=== PATIENT | female | born 1960 | race African-American/Black ===

== ENCOUNTER 2018-03-07 21:30 | Observation (INO) | payer MEDICARE, MEDICAID ==
[2018-03-07] MEDS ORDERED: Morphine 4 MG/ML VIAL ONE (22:10)
[2018-03-07 22:28] LABS: #Eosinphils 0.2 thou/uL (0.0-0.7); #Lymphocytes 1.7 thou/uL (1.20-3.40); #Monocytes 0.5 thou/uL (0.11-0.59); %Basophils 0.6 % (0.0-1.0); %Eosinophils 3.6 % (0.0-10.0); %Lymphocytes 26.2 % (21.0-51.0); %Monocytes 7.8 % (0.0-10.0); %Neutrophils 61.8 % (42.0-75.0); Hemoglobin 11.8 g/dL (12.0-16.0); Mean Corpuscular HGB CONC 32.2 g/dL (32.0-36.0); Mean Corpuscular Hemoglobin 29.3 pg (27.0-31.0); Mean Corpuscular Volume 90.8 fL (78.0-98.0); Mean Platelet Volume 7.1 fL (7.4-10.4); Platelet Count 300 thou/uL (130-400); RBC Distribution Width 12.8 % (11.5-14.5); Red Blood Cell (RBC) Count 4.02 mill/uL (4.20-5.40); White Blood Cell (WBC) Count 6.5 thou/uL (4.8-10.8)
[2018-03-07 22:41] LABS: ALT (SGPT) 16 U/L (8-55); AST (SGOT) 26 U/L (5-34); Albumin 3.8 g/dL (3.5-5.0); Alkaline Phosphatase 116 U/L (40-150); Anion Gap 13 mmol/L (10-20); BUN (Urea Nitrogen) 7 mg/dL (9.8-20.1); Bilirubin, Total 0.7 mg/dL (0.2-1.2); Calc. Creatinine Clearance 0 mL/min (70-130); Calcium 9.3 mg/dL (7.8-10.44); Carbon Dioxide 24 mmol/L (22-29); Chloride 106 mmol/L (98-107); Estimated GFR-MDRD Greater than 90; Globulin 3.8 g/dL (2.4-3.5); Glucose 87 mg/dL (70-105); Lipase 20 U/L (8-78); Potassium 3.4 mmol/L (3.5-5.1); Protein, Total 7.6 g/dL (6.0-8.3); Sodium 140 mmol/L (136-145)
[2018-03-07 22:44] LABS: Acetaminophen Less than 6.0 mcg/mL (10.0-30.0); Alcohol Less than 10 mg/dL (Less than 10); CK (CPK) 728 U/L (29-168); Salicylate Less than 8.0 mg/dL (15.0-30.0)
--- NOTE | 2018-03-07 22:48 | RAD ---
PORTABLE UPRIGHT FRONTAL CHEST RADIOGRAPH: 03/07/2018 HISTORY: Seizure. Altered mental status. COMPARISON: 11/20/2012 FINDINGS: A left-sided Port-A-Cath is present with the distal tip overlying the cavoatrial junction. The lungs appear clear. The heart and mediastinal contour is unremarkable. IMPRESSION: No acute findings. POS: [facility]
[2018-03-07 22:53] LABS: CKMB 1.9 ng/mL (0-6.6); Troponin I Less than 0.010 ng/mL (< 0.028)
[2018-03-07] MEDS ORDERED: Ondansetron PF 4 MG/2 ML Vial IVP PRN (23:45)
[2018-03-07] MEDS ORDERED: Ondansetron ODT 4 MG TAB SL PRN (23:45)
[2018-03-08 00:28] VITALS: BMI 35.4
[2018-03-08] MEDS: diphenhydrAMINE 50 MG/ML VIAL IVP PRN ×2 (00:48→08:07)
[2018-03-08] MEDS ORDERED: Nitroglycerin 0.4 MG TAB (25 Tab Bottle) SL PRN (02:04)
[2018-03-08] MEDS ORDERED: Promethazine 25 MG TAB PO PRN (02:04)
[2018-03-08] MEDS ORDERED: Furosemide 40 MG TAB PO PRN (02:04)
[2018-03-08] MEDS ORDERED: Acetaminophen 325 MG TAB PO PRN (02:05)
[2018-03-08] MEDS ORDERED: Morphine 4 MG/ML VIAL ONE (03:15)
[2018-03-08] MEDS ORDERED: Morphine 2 MG/ML SYRINGE SLOW IVP SCH (03:15)
[2018-03-08 04:33] LABS: #Eosinphils 0.2 thou/uL (0.0-0.7); #Lymphocytes 1.7 thou/uL (1.20-3.40); #Monocytes 0.4 thou/uL (0.11-0.59); #Neutrophils 3.7 thou/uL (1.40-6.50); %Basophils 0.8 % (0.0-1.0); %Lymphocytes 28.2 % (21.0-51.0); %Monocytes 7.2 % (0.0-10.0); %Neutrophils 59.9 % (42.0-75.0); Mean Corpuscular HGB CONC 32.5 g/dL (32.0-36.0); Mean Corpuscular Hemoglobin 29.2 pg (27.0-31.0); Mean Corpuscular Volume 89.9 fL (78.0-98.0); Mean Platelet Volume 7.1 fL (7.4-10.4); Platelet Count 288 thou/uL (130-400); Red Blood Cell (RBC) Count 4.12 mill/uL (4.20-5.40); White Blood Cell (WBC) Count 6.2 thou/uL (4.8-10.8)
[2018-03-08 04:53] LABS: Anion Gap 10 mmol/L (10-20); BUN (Urea Nitrogen) 7 mg/dL (9.8-20.1); Calc. Creatinine Clearance 123 mL/min (70-130); Calcium 9.6 mg/dL (7.8-10.44); Carbon Dioxide 29 mmol/L (22-29); Chloride 106 mmol/L (98-107); Estimated GFR-MDRD Greater than 90; Glucose 105 mg/dL (70-105); Potassium 3.2 mmol/L (3.5-5.1); Sodium 142 mmol/L (136-145)
[2018-03-08] MEDS ORDERED: Sodium Chloride 0.9% 1,000 ML IV SCH (06:30)
[2018-03-08] MEDS ORDERED: Potassium Chloride 20 MEQ TAB PO SCH (07:00)
--- NOTE | 2018-03-08 07:00 | HP ---
PRIMARY CARE PHYSICIAN: Out of town physician. TIME OF EVALUATION: 2:00 a.m. CODE STATUS: Full code. CHIEF COMPLAINT: Seizures. HISTORY OF PRESENT ILLNESS: This is a 57-year-old female patient with past medical history of TIAs and some clot disorder. No clear diagnosis given by patient, with recurrent TIAs and seizure. The patient admitted to the hospital after having an episode of seizure when she was at [facility]. The patient has a _ ___ aura that was reported as a very strong smell. After that, she developed a seizure. She was brought into the hospital. The patient has had multiple seizures with no recovery of mental status in between episodes. The patient received Keppra and episodes were better controlled without any other episode here in the hospital since admission. The symptoms were severe. The patient developed seizure because she was not taking medication in the past week. She reported that during the weekend she was not really take them. REVIEW OF SYSTEMS: CONSTITUTIONAL: No fever or chills or weakness. RESPIRATORY: No cough, sputum production or shortness of breath. CARDIOVASCULAR: No chest pain, palpitation. GASTROINTESTINAL: No nausea, vomiting, diarrhea or abdominal pain. FOREST FIRE LOOKOUT: No dizziness, headache or feeling lightheaded. The patient had episode of multiple seizures, not recovering level of consciousness in between episodes. GENITOURINARY: No burning with urination. EXTREMITIES: No leg swelling. All other systems were reviewed and are negative except for as mentioned above. PAST MEDICAL HISTORY: Positive for history of multiple DVTs, PEs, strokes x2, epilepsy PAST SURGICAL HISTORY: The patient has IVC filter, cholecystectomy, hysterectomy. FAMILY HISTORY:Reviewed and non contributory to current presentation. PSYCHIATRIC HISTORY: Depression. SOCIAL HISTORY: No drug use, no alcohol use. No smoking history. ALLERGIES: ATIVAN, BUTALBITAL, CODEINE, CYCLOBENZAPRINE, DOXYCYCLINE, HYDROMORPHONE, KETOROLAC, LYRICA, MEPERIDINE, METHADONE, MORPHINE, ONDANSETRON, PROPOXYPHENE, SULFAMETHOXAZOLE, TETRACYCLINE, TRAMADOL, VICODIN and ZOLDIPEM. REPORTED MEDICATIONS: Eliquis, aspirin, vitamin D3, paroxetine, Lasix, Keppra, trazodone, pyridoxine. PHYSICAL EXAMINATION: VITAL SIGNS: Blood pressure 141/92, heart rate 89, respiratory rate 19, temperature 98.7, pain 5/10, O2 saturation 95 on room air. GENERAL APPEARANCE: The patient is alert, oriented, no acute distress. HEENT: Eyes; normal conjunctivae. Moist oral mucosa. Anicteric. NECK: No JVD. RESPIRATORY: Bilateral air entry, no rales, no wheezing. Symmetric expansion. CARDIOVASCULAR: Normal rate, regular rhythm. No murmurs, no gallop. No edema. ABDOMEN: Soft, normal bowel sounds. MUSCULOSKELETAL: Baseline range of motion and strength. No tenderness. SKIN: Warm and intact. No pallor, no rash. No redness. Peripheral pulses are present. Capillary refill seems to be intact. NEUROLOGIC: No evidence of any new focal weakness. Baseline speech. Cranial nerves seem to be intact. The patient does seems to have slow mentation, but this could be related to the loading dose of Keppra the patient received. PSYCHIATRIC: The patient is in a good mood. No anxiety. Optimal judgment. Chest x-ray report was reviewed and showed no significant cardiopulmonary pathology reported by radiologist. LABORATORY DATA: Labs were reviewed. The patient has a white count 6.2, hemoglobin 12, platelet count 288. Sodium 142, potassium 3.2, chloride 106, carbon dioxide 29, anion gap 10, BUN 7, creatinine 0.78, GFR was 90, glucose 105 , calcium 9.6. CK 728. Troponin was negative. LFTs were negative. Toxicology was negative. TSH was normal. ASSESSMENT AND PLAN: The patient was placed in the hospital with the following medical problems. 1. Status epilepticus. The patient presented with multiple seizures. They were recurrent with no recovery of level of consciousness in between seizures. The patient received Keppra loading dose, patient's seizures were because the patient was not taking medications at home. We will restart home medications. We will monitor the patient. We will adjust treatment as needed. She has no seizures since admission. 2. History of multiple deep venous thromboses in the past. She is on chronic anticoagulation that will be continued as inpatient. 3. Mild elevated CK, likely secondary to seizure activity, the patient will receive some hydration. 4. Hypokalemia that is mild 3.2 potassium, electrolytes will be replaced. 5. Deep venous thrombosis prophylaxis. 6. The patient presented with severe pain, given 1 dose of morphine overnight. We will monitor. We will treat accordingly. high risk due to status epilepticus , changein neurological status MTDD
[2018-03-08] MEDS ORDERED: levETIRAcetam 500 MG TAB PO SCH (08:00)
[2018-03-08] MEDS: levETIRAcetam 500 MG TAB PO SCH ×2 (08:03→21:48)
[2018-03-08] MEDS: pyridOXINE 50 MG (B6) TAB PO SCH ×2 (08:06→21:48)
[2018-03-08] MEDS: Aspirin 81 mg Enteric Coated Tablet PO SCH (08:06)
[2018-03-08] MEDS: Apixaban 5 MG TAB PO SCH ×2 (08:06→21:48)
[2018-03-08] MEDS: Morphine ER 30 MG TAB PO PRN ×2 (08:08→20:00)
--- NOTE | 2018-03-08 09:33 | PDOC.PN ---
- Subjective Encounter Start Date: 03/08/18 Encounter Start Time: 09:28 Patient sitting up in bed, she reports feeling better. No seizure like activity since admission. She denies chest pain, shortness of breath or abdominal pain. She has some blurred vision on the right from previous TIA. She reports at baseline - Objective Resuscitation Status: Resuscitation Status FULL:Full Resuscitation MAR Reviewed: Yes Vital Signs & Weight: Vital Signs (12 hours) Temp Pulse Resp BP Pulse Ox 03/08/18 07:38 97.2 F L 97 20 135/86 98 03/08/18 04:35 98.6 F 83 20 145/83 H 97 Weight Weight 212 lb 9.6 oz I&O: 03/07/18 03/08/18 03/09/18 06:59 06:59 06:59 Intake Total 510 300 Balance 510 300 Result Diagrams: 03/08/18 04:22 03/08/18 04:22 Radiology Reviewed by me: Yes EKG Reviewed by me: Yes Phys Exam - Physical Examination Constitutional: NAD HEENT: PERRLA, moist MMs, oral pharynx no lesions Neck: no nodes, no JVD, supple Respiratory: no wheezing, no rales, no rhonchi, clear to auscultation bilateral Cardiovascular: RRR, no significant murmur, no rub Gastrointestinal: soft, non-tender, no distention, positive bowel sounds Musculoskeletal: no edema, pulses present Neurological: non-focal, normal sensation, moves all 4 limbs Lymphatic: no nodes Psychiatric: normal affect, A&O x 3 Skin: no rash, normal turgor, cap refill <2 seconds Dx/Plan (1) Seizure Code(s): R56.9 - UNSPECIFIED CONVULSIONS Status: Acute (2) Epilepsy Code(s): G40.909 - EPILEPSY, UNSP, NOT INTRACTABLE, WITHOUT STATUS EPILEPTICUS Status: Acute (3) History of DVT (deep vein thrombosis) Code(s): Z86.718 - PERSONAL HISTORY OF OTHER VENOUS THROMBOSIS AND EMBOLISM Status: Acute (4) Major depressive disorder Code(s): F32.9 - MAJOR DEPRESSIVE DISORDER, SINGLE EPISODE, UNSPECIFIED Status : Acute - Plan cont current plan of care * Continue with home medications including eliquis for DVT and Keppra for seizures. * Neurology services consulted * Monitor patient progress, further adjustments to medications as needed
[2018-03-08] MEDS ORDERED: diphenhydrAMINE 25 MG CAP PO PRN (12:07)
[2018-03-08] MEDS ORDERED: diphenhydrAMINE 50 MG CAP PO PRN (14:51)
[2018-03-08] MEDS ORDERED: diphenhydrAMINE 50 MG/ML VIAL IVP SCH (17:00)
--- NOTE | 2018-03-08 17:52 | CON ---
DATE OF CONSULTATION: 03/08/2018 CONSULTING PHYSICIAN: Hospitalist Service. IMPRESSION: Breakthrough seizures secondary to noncompliance. PLAN: 1. Continue Keppra 500 mg twice a day. 2. Benadryl 25 mg IV for allergic reaction. HISTORY OF PRESENT ILLNESS: Ms. Hayes is a 57-year-old black female from [place]. She has a past history of blood clotting disorder and epilepsy. She ran out of medicine over the holidays due to not getting over to the pharmacy in time. She had several breakthrough seizures and was admitted. She had a loading dose of Keppra and was restarted on her maintenance dose. The EKG tabs have caused an allergic reaction and she is quite uncomfortable with the itching. She had a repeat CT scan of the brain done, which was unremarkable. There is a MRI of the brain dated back to 2012 that was also negative. Her routine lab work was all normal. PAST MEDICAL HISTORY: Deep venous thrombosis requiring chronic anticoagulation, fibromyalgia, and rheumatoid arthritis. ALLERGIES: TAPE. MEDICATIONS: Medication list was reviewed. SOCIAL HISTORY: No tobacco or illicit drug use. FAMILY HISTORY: Noncontributory. REVIEW OF SYSTEMS: No focal neurologic complaints. PHYSICAL EXAMINATION: GENERAL: She is slightly overweight middle-aged woman, appears to be quite uncomfortable. HEENT: Pupils are equal and reactive. Conjunctivae clear. Oropharynx clear. NECK: Supple. EXTREMITIES: No cyanosis, clubbing, or edema. NEUROLOGIC: She is alert and appropriate. Speech is fluent and clear. Exam is nonfocal. SUMMARY: Ms. Hayes seems to be back to her baseline. She has not had any further seizures since admission. I think she can be discharged to her aunt's home here in town and we will continue her medication for management of her seizure. Job ID: [id number]
[2018-03-08] MEDS ORDERED: traZODone HCl 150 MG TAB PO SCH (21:00)
[2018-03-08] MEDS ORDERED: DULoxetine 60 MG CAP PO SCH (21:00)
[2018-03-08] MEDS ORDERED: PARoxetine 20 MG TAB PO SCH (21:00)
[2018-03-09] MEDS: Aspirin 81 mg Enteric Coated Tablet PO SCH (08:58)
[2018-03-09] MEDS: Apixaban 5 MG TAB PO SCH (08:58)
[2018-03-09] MEDS: levETIRAcetam 500 MG TAB PO SCH (08:58)
[2018-03-09] MEDS: pyridOXINE 50 MG (B6) TAB PO SCH (08:58)
[2018-03-09] MEDS: Morphine ER 30 MG TAB PO PRN (10:53)
[2018-03-09 12:27] VITALS: BP 102/64; TEMP 97.5
--- NOTE | 2018-03-09 12:58 | PDOC.EVN ---
Event Note - Event Note Event Note: I have interviewed, examined and discussed pt with Andrew YAÑEZ regarding breakthrough seizure restarted back on Keppra. No new seizure activity noted. Please see dictated d/c summary for full details. Ok to d/c home today.
--- NOTE | 2018-03-12 20:20 | EKG ---
Test Reason : Blood Pressure : / mmHG Vent. Rate : 084 BPM Atrial Rate : 084 BPM P-R Int : 156 ms QRS Dur : 086 ms QT Int : 360 ms P-R-T Axes : 023 021 039 degrees QTc Int : 425 ms Normal sinus rhythm Normal ECG Confirmed by DAISY CARRILLO, YANE ([id number]), book editor CLEMENCIA GRAY ([id number]) on 03/12/2018 8:20:04 PM Referred By: Confirmed By:YANE VILLA MD
== END 2018-03-09 14:45 | disposition home or self-care (01) ==
LOC: ERS 21:30 → 2SW 22:04
PROVIDERS: ADMIT Hospitalist; ATTEND Hospitalist
DX: G40.901 Epilepsy, unspecified, not intractable, with status epilepticus (principal); D68.9 Coagulation defect, unspecified; F32.9 Major depressive disorder, single episode, unspecified; E87.6 Hypokalemia; M79.7 Fibromyalgia; M06.9 Rheumatoid arthritis, unspecified; E66.3 Overweight; Z68.36 Body mass index [BMI] 36.0-36.9, adult; Z86.73 Personal history of transient ischemic attack (TIA), and cerebral infarction without residual deficits; Z86.718 Personal history of other venous thrombosis and embolism; Z79.01 Long term (current) use of anticoagulants; Z79.82 Long term (current) use of aspirin; Z79.899 Other long term (current) drug therapy; Z88.1 Allergy status to other antibiotic agents; Z88.2 Allergy status to sulfonamides; Z88.5 Allergy status to narcotic agent; Z88.8 Allergy status to other drugs, medicaments and biological substances; Z91.018 Allergy to other foods; Z95.828 Presence of other vascular implants and grafts
CPT/HCPCS: 71045; 80048; 80307; 82140; 82550; 82553; 83690; 83880; 84484; 85025; 93005; 96374; 96375; 96376; 99285; G0378 ×2; 84443; 96361; J1200; J1642; J2270

== ENCOUNTER 2018-03-16 14:18 | Observation (INO) | payer MEDICARE, MEDICAID ==
[~2018-03-16 14:18] MED LIST: ISOVUE-370 76%-LOCM 1 ML ONE
--- NOTE | 2018-03-16 15:47 | CT ---
HEAD CT WITHOUT CONTRAST: 03/16/18 HISTORY: Patient not acting normal this morning. Witnessed grand mal seizure. COMPARISON: 03/07/18 FINDINGS: No parenchymal hemorrhage. No extra-axial hematoma. No midline shift. Basilar cisterns are patent. Br ain volume, age appropriate. Cortical pantoja-white matter differentiation is preserved. The ventricles and sulci are patent and symmetric. Adequate aeration of the sinuses and mastoid air cells. Calvarium is intact. IMPRESSION: No acute intracranial process. Results of the study discussed with Lazara Foster, 03/16/18 at 2:59 p.m. Code CR POS: [facility]
[2018-03-16 16:03] LABS: #Eosinphils 0.2 thou/uL (0.0-0.7); #Lymphocytes 1.2 thou/uL (1.20-3.40); #Monocytes 0.6 thou/uL (0.11-0.59); #Neutrophils 3.1 thou/uL (1.40-6.50); %Basophils 0.6 % (0.0-1.0); %Eosinophils 4.2 % (0.0-10.0); %Lymphocytes 23.3 % (21.0-51.0); %Monocytes 11.7 % (0.0-10.0); %Neutrophils 60.2 % (42.0-75.0); Hemoglobin 11.9 g/dL (12.0-16.0); Mean Corpuscular HGB CONC 32.7 g/dL (32.0-36.0); Mean Corpuscular Hemoglobin 29.4 pg (27.0-31.0); Mean Platelet Volume 7.4 fL (7.4-10.4); Platelet Count 250 thou/uL (130-400); RBC Distribution Width 12.7 % (11.5-14.5); Red Blood Cell (RBC) Count 4.04 mill/uL (4.20-5.40); White Blood Cell (WBC) Count 5.2 thou/uL (4.8-10.8)
[2018-03-16 16:32] LABS: ALT (SGPT) 15 U/L (8-55); AST (SGOT) 18 U/L (5-34); Albumin 3.7 g/dL (3.5-5.0); Alkaline Phosphatase 113 U/L (40-150); Anion Gap 10 mmol/L (10-20); BUN (Urea Nitrogen) 6 mg/dL (9.8-20.1); Bilirubin, Total 0.5 mg/dL (0.2-1.2); Calc. Creatinine Clearance 0 mL/min (70-130); Calcium 9.4 mg/dL (7.8-10.44); Carbon Dioxide 28 mmol/L (22-29); Chloride 107 mmol/L (98-107); Estimated GFR-MDRD Greater than 90; Globulin 3.9 g/dL (2.4-3.5); Glucose 88 mg/dL (70-105); Potassium 3.4 mmol/L (3.5-5.1); Protein, Total 7.6 g/dL (6.0-8.3); Sodium 142 mmol/L (136-145)
--- NOTE | 2018-03-16 17:07 | CT ---
CT ARTERIOGRAM NECK WITH IV CONTRAST AND 3D MIP IMAGING CT ARTERIOGRAM HEAD WITH IV CONTRAST AND 3D MIP IMAGING CT BRAIN WITH IV CONTRAST: Date: 03/16/18 HISTORY: Seizure. Altered mental status. Headache. FINDINGS: There are no abnormal areas of intracranial contrast enhancement. Normal origin of the great vessels at the aortic arch. Widely patent. Good contrast opacification of each carotid and vertebral system. Each carotid bifurcation is patent. No significant plaque or calcification. [place] is intact. Good flow into each cerebral arterial system. No focal stenosis or aneury sm. IMPRESSION: No significant abnormalities are demonstrated. Findings called to Tanisha Foster in the ER at 1628 hours. CODE CR. POS: [facility]
[2018-03-16] MEDS ORDERED: Sodium Chloride 0.9% 1,000 ML IV SCH (21:00)
[2018-03-16 21:27] VITALS: BMI 36.1
[2018-03-16] MEDS ORDERED: Furosemide 40 MG TAB PO PRN (23:35)
[2018-03-16] MEDS ORDERED: Nitroglycerin 0.4 MG TAB (25 Tab Bottle) SL PRN (23:37)
[2018-03-16] MEDS ORDERED: Morphine 4 MG/ML VIAL SLOW IVP SCH (23:45)
[2018-03-16] MEDS ORDERED: Promethazine HCl 25 MG/ML VIAL SLOW IVP SCH (23:45)
[2018-03-16] MEDS ORDERED: PARoxetine 20 MG TAB PO SCH (23:45)
[2018-03-16] MEDS ORDERED: traZODone HCl 150 MG TAB PO SCH (23:45)
[2018-03-16] MEDS ORDERED: DULoxetine 60 MG CAP PO SCH (23:45)
[2018-03-16] MEDS ORDERED: levETIRAcetam 500 MG TAB PO SCH (23:45)
[2018-03-16] MEDS ORDERED: Apixaban 5 MG TAB PO SCH (23:45)
[2018-03-17] MEDS ORDERED: diphenhydrAMINE 50 MG/ML VIAL IVP PRN (00:31)
[2018-03-17] MEDS ORDERED: Ondansetron PF 4 MG/2 ML Vial IVP PRN (01:06)
[2018-03-17] MEDS ORDERED: Acetaminophen 325 MG TAB PO PRN (01:06)
[2018-03-17] MEDS: diphenhydrAMINE 50 MG/ML VIAL IVP SCH ×4 (01:13→18:30)
[2018-03-17 08:28] LABS: #Eosinphils 0.3 thou/uL (0.0-0.7); #Lymphocytes 1.4 thou/uL (1.20-3.40); #Monocytes 0.5 thou/uL (0.11-0.59); #Neutrophils 2.3 thou/uL (1.40-6.50); %Basophils 0.3 % (0.0-1.0); %Eosinophils 5.8 % (0.0-10.0); %Lymphocytes 31.2 % (21.0-51.0); %Monocytes 11.9 % (0.0-10.0); %Neutrophils 50.8 % (42.0-75.0); Hemoglobin 11.9 g/dL (12.0-16.0); Mean Corpuscular HGB CONC 31.4 g/dL (32.0-36.0); Mean Corpuscular Hemoglobin 28.2 pg (27.0-31.0); Mean Corpuscular Volume 89.7 fL (78.0-98.0); Mean Platelet Volume 8.1 fL (7.4-10.4); Platelet Count 226 thou/uL (130-400); RBC Distribution Width 12.9 % (11.5-14.5); Red Blood Cell (RBC) Count 4.24 mill/uL (4.20-5.40); White Blood Cell (WBC) Count 4.5 thou/uL (4.8-10.8)
[2018-03-17 08:31] LABS: Anion Gap 11 mmol/L (10-20); BUN (Urea Nitrogen) 7 mg/dL (9.8-20.1); Calc. Creatinine Clearance 140 mL/min (70-130); Calcium 9.2 mg/dL (7.8-10.44); Carbon Dioxide 24 mmol/L (22-29); Cardiac Risk 2.7 (Less than 4.5); Chloride 111 mmol/L (98-107); Cholesterol 90 mg/dl (< 200 Desired); Estimated GFR-MDRD Greater than 90; Glucose 93 mg/dL (70-105); HDL Cholesterol 33 mg/dL (>60 Neg Risk); LDL Cholesterol, Calculated 43 mg/dL; Potassium 3.4 mmol/L (3.5-5.1); Sodium 143 mmol/L (136-145); Triglycerides 68 mg/dL (Less than 150)
[2018-03-17] MEDS: Aspirin 81 mg Enteric Coated Tablet PO SCH (09:31)
[2018-03-17] MEDS: levETIRAcetam 500 MG TAB PO SCH ×2 (09:31→21:12)
[2018-03-17] MEDS: Apixaban 5 MG TAB PO SCH ×2 (09:31→21:13)
[2018-03-17] MEDS: PARoxetine 20 MG TAB PO SCH (09:31)
[2018-03-17] MEDS: pyridOXINE 50 MG (B6) TAB PO SCH ×2 (09:32→22:53)
[2018-03-17] MEDS: Morphine ER 30 MG TAB PO PRN (09:38)
--- NOTE | 2018-03-17 10:22 | MRI ---
MRI OF BRAIN WITHOUT CONTRAST: DATE: 03/17/2018. COMPARISON: 11/21/2012. HISTORY: Stroke, seizures. TECHNIQUE: Multiplanar, multisequence MR imaging of the brain is provided without contrast. FINDINGS: Detailed assessment of the brain is somewhat limited secondary to persistent patient head motion samantha fact. The diffusion weighted imaging demonstrates no evidence for acute infarction. Coronal gradient echo imaging is markedly limited by head motion artifact as is the coronal T1 weight ed imaging. The imaged paranasal sinuses/mastoid air cells are well aerated. There is no midline shift, mass effect, or ventricular enlargement. The regional bone marrow signal intensity appears within normal limits. Arterial flow voids at the axial level of the skull base appear grossly unremarkable on the T2 weight ed imaging. IMPRESSION: Limited study on the basis of motion artifact demonstrating no evidence for acute infarction. POS: [facility]
--- NOTE | 2018-03-17 14:51 | SS ---
DATE OF ADMISSION: 03/16/2018 DATE OF DISCHARGE: 03/17/2018 ADMISSION HISTORY AND PHYSICAL AND SHORT-STAY NOTE: PRIMARY CARE PROVIDER: Charlie platt. CHIEF COMPLAINT: Slurred speech and right arm weakness. HISTORY OF PRESENT ILLNESS: This is a 57-year-old female, who presented to [facility] Emergency Department after apparently waking up from sleeping noting difficulty using her right arm and some weakness of her right leg with associated difficulty speaking. The patient became concerned with her symptoms and presented to the emergency room thinking she may have suffered a stroke. The patient states she has had previous strokes in the past and does take chronic Eliquis therapy for an undisclosed clotting disorder. The patient also admits to a recent evaluation and admission to [facility] from 03/08/2018 through 03/09/2018 after apparent breakthrough seizures. The patient was placed on Keppra 500 mg b.i.d. and released home. The patient states she has been compliant with her Keppra therapy as well as her chronic prescriptions. The patient states she noticed some difficulty making a fist or closing her hand, but it has improved since evaluation in the emergency room. The patient denies any recent fall or injury, visual disturbance, or headache. The patient denies taking any other illicit substances or medications. The patient denied any alcohol use. In the emergency room, the patient underwent evaluation including CT imaging of the brain, which was negative. Screening metabolic survey was essentially unrevealing and prolactin level was noted normal. The patient underwent subsequent MRI imaging of the brain showing no acute process and CT angiogram of the head and neck was also interpreted as negative. PAST MEDICAL HISTORY: 1. Question of seizure disorder, on current Keppra. 2. Clotting disorder, unknown type. 3. Question of prior CVA/TIAs. 4. Polypharmacy. 5. Chronic narcotic use. PAST SURGICAL HISTORY: 1. Status post IVC filter placement. 2. Status post cholecystectomy. 3. Status post hysterectomy. CURRENT MEDICATIONS: 1. Eliquis 5 mg p.o. b.i.d. 2. Enteric-coated aspirin 81 mg p.o. daily. 3. Vitamin D3 of 2000 units p.o. t.i.d. 4. Cymbalta 120 mg p.o. at bedtime. 5. Lasix 40 mg p.o. daily. 6. Keppra 500 mg p.o. b.i.d. 7. MS Contin 60 mg p.o. b.i.d. 8. Nitroglycerin 0.4 mg sublingually as needed for chest pain. 9. Paxil 40 mg p.o. at bedtime. 10. Vitamin B6 of 200 mg p.o. b.i.d. 11. Trazodone 300 mg p.o. at bedtime. ALLERGIES: EXTENSIVE INCLUDING CODEINE, FLEXERIL, DOXYCYCLINE, AND SULFA. FAMILY HISTORY: Positive for hypertension. SOCIAL HISTORY: The patient originally from [place], [place]. Disabled. Visiting her aunt in [facility]. No current alcohol, tobacco, or illicit drug use. REVIEW OF SYSTEMS: CONSTITUTIONAL: Negative for weight loss or gain, ability to conduct usual activities. SKIN: Negative for rash, itching. EYES: Negative for double vision, pain. ENT/MOUTH: Negative for nose bleeding, neck stiffness, pain, tenderness. CARDIOVASCULAR: Negative for palpitations, dyspnea on exertion, orthopnea. RESPIRATORY: Negative for shortness of breath, wheezing, cough, hemoptysis, fever or night sweats. GASTROINTESTINAL: Negative for poor appetite, abdominal pain, heartburn, nausea, vomiting, constipation, or diarrhea. GENITOURINARY: Negative for urgency, frequency, dysuria, nocturia. MUSCULOSKELETAL: Negative for pain, swelling. NEUROLOGIC/PSYCHIATRIC: Negative for anxiety, depression. ALLERGY/IMMUNOLOGIC: Negative for skin rash, bleeding tendency. Otherwise, negative except as stated per HPI. PHYSICAL EXAMINATION: VITAL SIGNS: Currently, blood pressure 105/56, pulse 82, respiratory rate 18, temperature 98.4 degrees Fahrenheit, and O2 saturation 93% on room air. GENERAL APPEARANCE: This is a 57-year-old female, alert and oriented x3, pleasant, responsive, in no acute distress. HEENT: Pupils are equal, round, and reactive to light and accommodation. Extraocular muscles are intact. No scleral icterus. No conjunctival injection. Nares patent. OP is clear. Teeth in fair repair. NECK: Supple. No cervical adenopathy. No thyromegaly. No carotid bruits. No JVD appreciated. Cervical spine with full active and passive range of motion. No meningeal signs appreciated. CHEST: Lungs are clear to auscultation bilaterally. CARDIOVASCULAR: S1 and S2 without noted murmur, rub, or gallop. ABDOMEN: Obese, soft, nontender, and nondistended. Bowel sounds are positive in all four quadrants. There is no hepatosplenomegaly. No abdominal bruits. No rebound or guarding appreciated. EXTREMITIES: Warm and dry with fair turgor. No clubbing, cyanosis or asymmetric edema appreciated. Pulses are palpable distally at the dorsalis pedis, posterior tibial, and popliteal arteries bilaterally. Capillary refill less than 2 seconds. NEUROLOGIC: Mild right upper extremity weakness. Wax Pourer strength 3/5 compared to the left upper extremity. Moves all extremities on command. Mild weakness including 3 to 4/5 of the right lower extremity. Cranial nerves II through XII are grossly intact. No other focal or lateralizing signs noted. PERTINENT LAB AND X-RAY FINDINGS: Sodium 142, potassium 3.4, chloride 107, CO2 of 28, BUN 6, creatinine 0.74, estimated GFR greater than 90, glucose 88, and calcium 9.4. LFTs within normal limits. Total cholesterol 90, triglycerides 68, HDL of 33, and LDL of 43. Prolactin level of 14.11. Troponin I negative x1. CBC within normal limits. CT of the brain without contrast dated 03/16/2018 showed no acute intracranial process. CT angiogram of the head and neck dated 03/16/2018 showed no significant abnormalities. MRI of the brain dated 03/17/2018 showed no acute intracranial process. EKG dated 03/16/2018 by my interpretation shows sinus mechanism with heart rates in the 80s. Normal R-wave progression noted in the precordial leads. Normal axis. No acute ST-T wave changes appreciated. ASSESSMENT AND PLAN: 1. Paresthesias. The patient with polypharmacy likely inducing somnolence with mild brachial plexus compromise in the right upper extremity. No specific evidence of acute intracranial process or cerebrovascular accident. Suspect the patient's polypharmacy the underlying etiology of presentation. 2. Dysarthria, suspect secondary related to polypharmacy including narcotic exposure in conjunction with Cymbalta and Paxil. No evidence of acute cerebrovascular accident. 3. Seizure disorder, stable currently. Continue Keppra 500 mg b.i.d. No evidence of active seizures. 4. Hypokalemia, mild. Increased oral potassium supplementation and regular diet. 5. Chronic anticoagulation. History of prior clotting disorder, on chronic anticoagulation. Resume Eliquis 5 mg b.i.d. 6. Polypharmacy. The patient may need additional titration and review of her chronic medication regimen by her primary care provider after discharge. 7. Prophylaxis. Update influenza vaccination prior to discharge. 8. Code status is full. Surrogate medical decision maker is the patient's mother. DISPOSITION: Discharged home on 03/17/2018. May follow up with her primary care provider in the [place], [place] area. Job ID: [id number]
--- NOTE | 2018-03-17 20:57 | ULT ---
RIGHT UPPER EXTREMITY VENOUS DUPLEX EXAM: 03/17/18 HISTORY: Right arm pain and swelling. Real time color doppler evaluation of the right upper extremity including the internal jugular vein, subclavian, axillary, brachial, basilic and cephalic veins. This also included some forearm veins. Sh ows some nonocclusive thrombus within the right internal jugular vein. I do not see any propagation i nto the confluence with the subclavian. All other veins are normal in appearance. IMPRESSION: Nonocclusive thrombus in the right internal jugular vein. POS: [facility]
--- NOTE | 2018-03-17 20:59 | ULT ---
RIGHT LOWER EXTREMITY VENOUS DUPLEX EXAM: Date: 03/17/18 HISTORY: Leg pain and swelling. FINDINGS: Real-time color Doppler of right lower extremity was performed from groin to calf. This includes eval uation of the common femoral, superficial and profunda femoral, saphenous, popliteal, and posterior t ibial veins. This shows nonocclusive thrombus extending from the right common femoral vein to include the popliteal vein. There is incomplete compressibility. IMPRESSION: Evidence of a deep venous thrombosis with nonocclusive thrombus from the common femoral to popliteal vein level. POS: [facility]
[2018-03-17] MEDS: DULoxetine 60 MG CAP PO SCH (21:12)
[2018-03-17] MEDS: Atorvastatin Calcium 40 MG TAB PO SCH (21:12)
[2018-03-17] MEDS: traZODone HCl 150 MG TAB PO SCH (21:12)
[2018-03-18] MEDS ORDERED: Sodium Chloride 0.9% 1,000 ML IV SCH (03:15)
[2018-03-18] MEDS: diphenhydrAMINE 50 MG/ML VIAL IVP SCH ×4 (06:55→21:19)
[2018-03-18] MEDS: pyridOXINE 50 MG (B6) TAB PO SCH ×2 (09:54→21:17)
[2018-03-18] MEDS: Apixaban 5 MG TAB PO SCH ×2 (09:54→21:17)
[2018-03-18] MEDS: PARoxetine 20 MG TAB PO SCH (09:55)
[2018-03-18] MEDS: levETIRAcetam 500 MG TAB PO SCH ×2 (09:56→21:17)
[2018-03-18] MEDS: Aspirin 81 mg Enteric Coated Tablet PO SCH (09:56)
[2018-03-18] MEDS: Morphine ER 30 MG TAB PO PRN (14:19)
--- NOTE | 2018-03-18 14:24 | PDOC.PN ---
- Subjective Encounter Start Date: 03/18/18 Encounter Start Time: 14:20 Subjective: f/u for R-sided weakness with negative MRI/CT imaging of brain. Also -: has non-occlusive DVT in R IJ and R common femoral vein on chronic -: Eliquis and ASA. Still with swelling in R arm. - Objective Resuscitation Status - Order Detail: 03/17/18 01:06 Resuscitation Status Routine Resuscitation Status: FULL: Full Resuscitation MAR Reviewed: Yes Vital Signs & Weight: Vital Signs (12 hours) Temp Pulse Resp BP Pulse Ox 03/18/18 14:15 108/68 03/18/18 11:29 98.4 F 72 18 96/52 L 92 L 03/18/18 09:55 106/59 L 03/18/18 08:00 97.3 F L 71 18 87/51 L 93 L 03/18/18 04:00 97.8 F 78 16 100/63 93 L 03/18/18 03:00 84/44 L Weight Weight 217 lb 8 oz I&O: 03/17/18 03/18/18 03/19/18 06:59 06:59 06:59 Intake Total 1480 Balance 1480 Result Diagrams: 03/17/18 07:49 03/17/18 07:49 Additional Labs: Laboratory Tests 03/16/18 03/16/18 03/17/18 15:45 15:45 07:49 Potassium 3.4 L 3.4 L Triglycerides 68 Cholesterol 90 LDL Cholesterol, Calc 43 HDL Cholesterol 33 Prolactin 14.11 Radiology Reviewed by me: Yes (Venogram RU/LE - non-occlusive DVT R IJ and R common femoral/popliteal) EKG Reviewed by me: Yes (Tele - SR) Phys Exam - Physical Examination Constitutional: NAD HEENT: PERRLA, sclera anicteric, oral pharynx no lesions Neck: no nodes, no JVD, supple, full ROM Respiratory: no wheezing, no rales, no rhonchi, clear to auscultation bilateral S1, S2 Cardiovascular: RRR, no significant murmur, no rub, gallop Gastrointestinal: soft, non-tender, no distention, positive bowel sounds RUE edema Musculoskeletal: pulses present RU/LE with 3/5 strength Neurological: normal sensation, moves all 4 limbs Psychiatric: A&O x 3 Skin: normal turgor, cap refill <2 seconds Dx/Plan (1) Deep vein thrombosis (DVT) of right upper extremity Code(s): I82.621 - ACUTE EMBOLISM AND THROMBOSIS OF DEEP VEINS OF R UP EXTREM Status: Chronic Comment: non-occlusive DVT in R IJ on chronic Eliquis therapy , continue Eliquis 5mg BID, increase ASA 325mg daily (2) Deep vein thrombosis (DVT) of right lower extremity Code(s): I82.401 - ACUTE EMBOLISM AND THOMBOS UNSP DEEP VEINS OF R LOW EXTREM Status: Chronic Qualifiers: Affected thrombotic vein of extremity: femoral Comment: Chronic, non-occlusive DVT in R common femoral/popliteal veins, continue Eliquis/ASA (3) Major depressive disorder Code(s): F32.9 - MAJOR DEPRESSIVE DISORDER, SINGLE EPISODE, UNSPECIFIED Status : Chronic Comment: Continue Cymbalta/Paxil (4) Seizure Code(s): R56.9 - UNSPECIFIED CONVULSIONS Status: Chronic Comment: Continue Keppra 500mg BID (5) Chronic narcotic dependence Code(s): F11.20 - OPIOID DEPENDENCE, UNCOMPLICATED Status: Chronic Comment: Continue MS Contin 60mg BID - Plan plan discussed w/ family, PT/OT, web content & social media manager, out of bed/ambulate Stable overall -: CM consult for SNF/swing bed options -: Continue Eliquis 5mg BID -: Increase ASA 325mg daily -: PT/OT evaluation for functional assessment * .
[2018-03-18] MEDS: Promethazine 25 MG TAB PO PRN (17:27)
[2018-03-18] MEDS: DULoxetine 60 MG CAP PO SCH (21:18)
[2018-03-18] MEDS: traZODone HCl 150 MG TAB PO SCH (21:18)
[2018-03-18] MEDS: Atorvastatin Calcium 40 MG TAB PO SCH (21:18)
[2018-03-19] MEDS: Morphine ER 30 MG TAB PO PRN ×2 (04:40→18:23)
[2018-03-19] MEDS: Promethazine 25 MG TAB PO PRN ×2 (04:42→20:45)
[2018-03-19] MEDS: diphenhydrAMINE 50 MG/ML VIAL IVP SCH ×4 (04:42→18:24)
[2018-03-19] MEDS: PARoxetine 20 MG TAB PO SCH (10:02)
[2018-03-19] MEDS: levETIRAcetam 500 MG TAB PO SCH ×2 (10:03→20:45)
[2018-03-19] MEDS: Apixaban 5 MG TAB PO SCH ×2 (10:03→20:45)
[2018-03-19] MEDS: pyridOXINE 50 MG (B6) TAB PO SCH ×2 (10:03→20:56)
[2018-03-19] MEDS: Aspirin 325 mg Enteric Coated Tablet PO SCH (10:04)
--- NOTE | 2018-03-19 12:00 | PDOC.PN ---
- Subjective Encounter Start Date: 03/19/18 Encounter Start Time: 12:00 Subjective: f/u for R-sided weakness(chronic) with negative neuro workup and -: MRI brain. Non-occlusive RU/LE DVT on chronic Eliquis/ASA currently. -: States slept poorly but falls asleep while talking. - Objective Resuscitation Status - Order Detail: 03/17/18 01:06 Resuscitation Status Routine Resuscitation Status: FULL: Full Resuscitation MAR Reviewed: Yes Vital Signs & Weight: Vital Signs (12 hours) Temp Pulse Pulse Pulse Resp BP BP 03/19/18 11:44 97.8 F 72 16 03/19/18 09:25 78 83 103/59 L 102/64 03/19/18 08:05 03/19/18 07:35 98.5 F 75 16 03/19/18 03:39 98.3 F 84 16 03/19/18 00:00 98.5 F 84 16 BP Pulse Ox 03/19/18 11:44 99/56 L 93 L 03/19/18 09:25 03/19/18 08:05 94 L 03/19/18 07:35 93/54 L 94 L 03/19/18 03:39 93/54 L 93 L 03/19/18 00:00 100/59 L 96 Weight Weight 217 lb 8 oz I&O: 03/18/18 03/19/18 03/20/18 06:59 06:59 06:59 Intake Total 2510 Balance 2510 Result Diagrams: 03/17/18 07:49 03/17/18 07:49 Additional Labs: Laboratory Tests 03/16/18 03/16/18 03/17/18 15:45 15:45 07:49 Potassium 3.4 L 3.4 L Triglycerides 68 Cholesterol 90 LDL Cholesterol, Calc 43 HDL Cholesterol 33 Prolactin 14.11 EKG Reviewed by me: Yes (Tele - SR) Phys Exam - Physical Examination Constitutional: NAD lethargic, falls asleep in mid-sentence HEENT: PERRLA, sclera anicteric, oral pharynx no lesions Neck: no nodes, no JVD, supple, full ROM Respiratory: no wheezing, no rales, no rhonchi, clear to auscultation bilateral S1, S2 Cardiovascular: RRR, no significant murmur, no rub, gallop Gastrointestinal: soft, non-tender, no distention, positive bowel sounds RUE edema noted Musculoskeletal: pulses present Neurological: normal sensation, moves all 4 limbs Psychiatric: A&O x 3 Skin: normal turgor, cap refill <2 seconds Dx/Plan (1) Deep vein thrombosis (DVT) of right upper extremity Code(s): I82.621 - ACUTE EMBOLISM AND THROMBOSIS OF DEEP VEINS OF R UP EXTREM Status: Chronic Comment: non-occlusive DVT in R IJ on chronic Eliquis therapy , continue Eliquis 5mg BID, increase ASA 325mg daily (2) Deep vein thrombosis (DVT) of right lower extremity Code(s): I82.401 - ACUTE EMBOLISM AND THOMBOS UNSP DEEP VEINS OF R LOW EXTREM Status: Chronic Qualifiers: Affected thrombotic vein of extremity: femoral Comment: Chronic, non-occlusive DVT in R common femoral/popliteal veins, continue Eliquis/ASA (3) Major depressive disorder Code(s): F32.9 - MAJOR DEPRESSIVE DISORDER, SINGLE EPISODE, UNSPECIFIED Status : Chronic Comment: Continue Cymbalta/Paxil (4) Seizure Code(s): R56.9 - UNSPECIFIED CONVULSIONS Status: Chronic Comment: Continue Keppra 500mg BID (5) Chronic narcotic dependence Code(s): F11.20 - OPIOID DEPENDENCE, UNCOMPLICATED Status: Chronic Comment: Continue MS Contin 60mg BID - Plan PT/OT, social work assistant, out of bed/ambulate, DVT proph w/SCDs Stable currently -: Continue supportive mgmt -: CM assisting with swing bed option -: PT/OT for mobilization -: Continue Eliquis/ASA * .
--- NOTE | 2018-03-19 13:48 | EKG ---
Test Reason : ER Blood Pressure : / mmHG Vent. Rate : 089 BPM Atrial Rate : 089 BPM P-R Int : 150 ms QRS Dur : 086 ms QT Int : 342 ms P-R-T Axes : 025 023 035 degrees QTc Int : 416 ms Normal sinus rhythm Normal ECG Confirmed by BRIAN OLIVIA DO ([id number]), multimedia editor ARIANNA MAI ([id number]) on 03/19/2018 1:47:50 PM Referred By: Confirmed By:BRIAN OLIVIA DO
[2018-03-19] MEDS: Atorvastatin Calcium 40 MG TAB PO SCH (20:45)
[2018-03-19] MEDS: traZODone HCl 150 MG TAB PO SCH (20:45)
[2018-03-19] MEDS: DULoxetine 60 MG CAP PO SCH (20:45)
[2018-03-20] MEDS: diphenhydrAMINE 50 MG/ML VIAL IVP SCH ×4 (00:03→17:14)
[2018-03-20] MEDS: pyridOXINE 50 MG (B6) TAB PO SCH ×2 (08:41→20:39)
[2018-03-20] MEDS: Apixaban 5 MG TAB PO SCH ×2 (08:42→20:39)
[2018-03-20] MEDS: levETIRAcetam 500 MG TAB PO SCH ×2 (08:42→20:39)
[2018-03-20] MEDS: PARoxetine 20 MG TAB PO SCH (08:42)
[2018-03-20] MEDS: Aspirin 325 mg Enteric Coated Tablet PO SCH (08:42)
--- NOTE | 2018-03-20 16:17 | PDOC.PN ---
- Subjective Encounter Start Date: 03/20/18 Encounter Start Time: 16:15 Subjective: f/u for RU/LE weakness(chronic) and RU/LE DVT on chronic -: Eliquis. No new complaints. - Objective Resuscitation Status - Order Detail: 03/17/18 01:06 Resuscitation Status Routine Resuscitation Status: FULL: Full Resuscitation MAR Reviewed: Yes Vital Signs & Weight: Vital Signs (12 hours) Temp Pulse Resp BP Pulse Ox 03/20/18 16:00 98.8 F 86 20 106/68 99 03/20/18 11:54 97.8 F 86 16 102/63 98 03/20/18 08:00 99.2 F 92 16 102/60 97 Weight Weight 217 lb 8 oz I&O: 03/19/18 03/20/18 03/21/18 06:59 06:59 06:59 Intake Total 2510 1841 Output Total 550 Balance 2510 1291 Result Diagrams: 03/17/18 07:49 03/17/18 07:49 Additional Labs: Laboratory Tests 03/16/18 03/16/18 03/17/18 15:45 15:45 07:49 Potassium 3.4 L 3.4 L Triglycerides 68 Cholesterol 90 LDL Cholesterol, Calc 43 HDL Cholesterol 33 Prolactin 14.11 EKG Reviewed by me: Yes (Tele - SR) Phys Exam - Physical Examination Constitutional: NAD HEENT: PERRLA, sclera anicteric, oral pharynx no lesions Neck: no nodes, no JVD, supple, full ROM Respiratory: no wheezing, no rales, no rhonchi, clear to auscultation bilateral S1, S2 Cardiovascular: RRR, no significant murmur, no rub, gallop Gastrointestinal: soft, non-tender, no distention, positive bowel sounds RUE edema Musculoskeletal: pulses present Neurological: normal sensation, moves all 4 limbs Psychiatric: A&O x 3 Skin: normal turgor, cap refill <2 seconds Dx/Plan (1) Deep vein thrombosis (DVT) of right upper extremity Code(s): I82.621 - ACUTE EMBOLISM AND THROMBOSIS OF DEEP VEINS OF R UP EXTREM Status: Chronic Comment: non-occlusive DVT in R IJ on chronic Eliquis therapy , continue Eliquis 5mg BID, increase ASA 325mg daily (2) Deep vein thrombosis (DVT) of right lower extremity Code(s): I82.401 - ACUTE EMBOLISM AND THOMBOS UNSP DEEP VEINS OF R LOW EXTREM Status: Chronic Qualifiers: Affected thrombotic vein of extremity: femoral Comment: Chronic, non-occlusive DVT in R common femoral/popliteal veins, continue Eliquis/ASA (3) Major depressive disorder Code(s): F32.9 - MAJOR DEPRESSIVE DISORDER, SINGLE EPISODE, UNSPECIFIED Status : Chronic Comment: Continue Cymbalta/Paxil (4) Seizure Code(s): R56.9 - UNSPECIFIED CONVULSIONS Status: Chronic Comment: Continue Keppra 500mg BID (5) Chronic narcotic dependence Code(s): F11.20 - OPIOID DEPENDENCE, UNCOMPLICATED Status: Chronic Comment: Continue MS Contin 60mg BID - Plan PT/OT, social media senior associate, out of bed/ambulate Stable overall -: Continue Eliquis 5mg BID -: Continue ASA 325mg daily -: PT/OT for mobilization -: Await approval for swing bed * Continue Keppra 500mg BID * Likely d/c in 24h
[2018-03-20] MEDS: traZODone HCl 150 MG TAB PO SCH (20:38)
[2018-03-20] MEDS: Atorvastatin Calcium 40 MG TAB PO SCH (20:39)
[2018-03-20] MEDS: DULoxetine 60 MG CAP PO SCH (20:39)
[2018-03-21] MEDS: Morphine ER 30 MG TAB PO PRN ×2 (00:03→11:24)
[2018-03-21] MEDS: diphenhydrAMINE 50 MG/ML VIAL IVP SCH ×4 (00:03→17:30)
[2018-03-21] MEDS: pyridOXINE 50 MG (B6) TAB PO SCH ×2 (09:43→22:12)
[2018-03-21] MEDS: Apixaban 5 MG TAB PO SCH ×2 (09:44→22:12)
[2018-03-21] MEDS: Aspirin 325 mg Enteric Coated Tablet PO SCH (09:44)
[2018-03-21] MEDS: levETIRAcetam 500 MG TAB PO SCH ×2 (09:44→22:13)
[2018-03-21] MEDS: PARoxetine 20 MG TAB PO SCH (09:45)
--- NOTE | 2018-03-21 15:00 | PDOC.PN ---
- Subjective Encounter Start Date: 03/21/18 Encounter Start Time: 15:00 Subjective: f/u for R-sided weakness(chronic) and RU/LE DVT on chronic Eliquis. -: Ambulated up to 400' today. Appetite good. Feels ok overall. - Objective Resuscitation Status - Order Detail: 03/17/18 01:06 Resuscitation Status Routine Resuscitation Status: FULL: Full Resuscitation MAR Reviewed: Yes Vital Signs & Weight: Vital Signs (12 hours) Temp Pulse Pulse Pulse Resp BP BP 03/21/18 12:00 97.7 F 79 18 03/21/18 09:00 85 76 122/76 106/56 L 03/21/18 08:26 80 111/59 L 03/21/18 07:57 98.7 F 84 16 03/21/18 04:00 99.4 F 81 18 BP Pulse Ox 03/21/18 12:00 102/69 97 03/21/18 09:00 03/21/18 08:26 03/21/18 07:57 98/65 95 03/21/18 04:00 100/60 94 L Weight Weight 217 lb 8 oz I&O: 03/20/18 03/21/18 03/22/18 06:59 06:59 06:59 Intake Total 1841 Output Total 550 Balance 1291 Result Diagrams: 03/17/18 07:49 03/17/18 07:49 Additional Labs: Laboratory Tests 03/16/18 03/16/18 03/17/18 15:45 15:45 07:49 Potassium 3.4 L 3.4 L Triglycerides 68 Cholesterol 90 LDL Cholesterol, Calc 43 HDL Cholesterol 33 Prolactin 14.11 EKG Reviewed by me: Yes (Tele - SR) Phys Exam - Physical Examination Constitutional: NAD HEENT: PERRLA, sclera anicteric, oral pharynx no lesions Neck: no nodes, no JVD, supple, full ROM Respiratory: no wheezing, no rales, no rhonchi, clear to auscultation bilateral S1, S2 Cardiovascular: RRR, no significant murmur, no rub, gallop Gastrointestinal: soft, non-tender, no distention, positive bowel sounds mild edema of RUE Musculoskeletal: pulses present Neurological: normal sensation, moves all 4 limbs Psychiatric: A&O x 3 Skin: normal turgor, cap refill <2 seconds Dx/Plan (1) Deep vein thrombosis (DVT) of right upper extremity Code(s): I82.621 - ACUTE EMBOLISM AND THROMBOSIS OF DEEP VEINS OF R UP EXTREM Status: Chronic Comment: non-occlusive DVT in R IJ on chronic Eliquis therapy , continue Eliquis 5mg BID, increase ASA 325mg daily (2) Deep vein thrombosis (DVT) of right lower extremity Code(s): I82.401 - ACUTE EMBOLISM AND THOMBOS UNSP DEEP VEINS OF R LOW EXTREM Status: Chronic Qualifiers: Affected thrombotic vein of extremity: femoral Comment: Chronic, non-occlusive DVT in R common femoral/popliteal veins, continue Eliquis/ASA (3) Major depressive disorder Code(s): F32.9 - MAJOR DEPRESSIVE DISORDER, SINGLE EPISODE, UNSPECIFIED Status : Chronic Comment: Continue Cymbalta/Paxil (4) Seizure Code(s): R56.9 - UNSPECIFIED CONVULSIONS Status: Chronic Comment: Continue Keppra 500mg BID (5) Chronic narcotic dependence Code(s): F11.20 - OPIOID DEPENDENCE, UNCOMPLICATED Status: Chronic Comment: Continue MS Contin 60mg BID (6) Physical deconditioning Code(s): R53.81 - OTHER MALAISE Status: Chronic Comment: PT for mobilization , SNF/swing bed options pending - Plan PT/OT, social media job titles, out of bed/ambulate Stable currently -: Continue Eliquis 5mg BID -: Continue ASA 325mg daily -: Continue Keppra 500mg BID -: SNF/Swing bed approval pending * .
--- NOTE | 2018-03-21 16:28 | PQF ---
CLINICAL DOCUMENTATION IMPROVEMENT CLARIFICATION FORM: ICD-10 Updated PLEASE DO AN ADDENDUM TO THE PROGRESS NOTE WITH ANY DOCUMENTATION UPDATES OR ADDITIONS AND CARRY THROUGH TO DC SUMMARY. THANK YOU. DATE: 03/21/18 ATTN: Dr. Mott Please exercise your independent, professional judgment in responding to the clarification form. Clinical indicators are provided on the bottom of this form for your review Please check appropriate box(s): Mood Disorder Type (check appropriate): Severity [ x ] Major Depressive Disorder [ ] Mild [ x ] Moderate [ ] Severe [ ] Persistent Mood Disorder [ ] Other diagnosis [ ] Unable to determine In addition, please specify: Present on Admission (POA): [ x ] Yes [ ] No [ ] Unable to determine For continuity of documentation, please document condition throughout progress notes and discharge summary. Thank You. CLINICAL INDICATORS - SIGNS / SYMPTOMS / LABS PN 03/20 -03/21: Major depressive disorder, single episode, unspecified. Chronic. RISKS: ED RECORD 03/16: PSYCHIATRIC HISTORY INCLUDES, DEPRESSION. TREATMENT: Order 03/16: Paxil 40 mg daily Order 03/16: Cymbalta 120 mg po HS Thank you, Deisy (This form is maintained as a part of the permanent medical record) 2015 [employer] All Rights Reserved Deisy Gordon RN, BSN [email or web address] Office: [phone] [facility]
[2018-03-21] MEDS: Atorvastatin Calcium 40 MG TAB PO SCH (22:13)
[2018-03-21] MEDS: DULoxetine 60 MG CAP PO SCH (22:13)
[2018-03-21] MEDS: traZODone HCl 150 MG TAB PO SCH (22:13)
[2018-03-22] MEDS: diphenhydrAMINE 50 MG/ML VIAL IVP SCH ×5 (00:03→22:52)
[2018-03-22] MEDS: Morphine ER 30 MG TAB PO PRN ×2 (00:03→22:52)
[2018-03-22] MEDS: Aspirin 325 mg Enteric Coated Tablet PO SCH (08:49)
[2018-03-22] MEDS: levETIRAcetam 500 MG TAB PO SCH ×2 (08:49→20:43)
[2018-03-22] MEDS: Apixaban 5 MG TAB PO SCH ×2 (08:50→20:42)
[2018-03-22] MEDS: PARoxetine 20 MG TAB PO SCH ×2 (08:52→20:42)
[2018-03-22] MEDS: pyridOXINE 50 MG (B6) TAB PO SCH ×2 (12:35→20:43)
--- NOTE | 2018-03-22 16:23 | PDOC.PN ---
- Subjective Encounter Start Date: 03/22/18 Encounter Start Time: 16:20 Subjective: f/u for DVT RU/LE on chronic Eliquis. Awaiting swing bed approval. - Objective Resuscitation Status - Order Detail: 03/17/18 01:06 Resuscitation Status Routine Resuscitation Status: FULL: Full Resuscitation MAR Reviewed: Yes Vital Signs & Weight: Vital Signs (12 hours) Temp Pulse Resp BP Pulse Ox 03/22/18 15:50 98.1 F 84 16 99/61 94 L 03/22/18 11:47 98.8 F 80 16 96/52 L 94 L 03/22/18 07:45 98.4 F 86 16 105/62 100 Weight Weight 217 lb 8 oz Result Diagrams: 03/17/18 07:49 03/17/18 07:49 EKG Reviewed by me: Yes (Tele - SR) Phys Exam - Physical Examination Constitutional: NAD HEENT: PERRLA, sclera anicteric, oral pharynx no lesions Neck: no nodes, no JVD, supple, full ROM Respiratory: no wheezing, no rales, no rhonchi, clear to auscultation bilateral Cardiovascular: RRR, no significant murmur, no rub, gallop Gastrointestinal: soft, non-tender, no distention, positive bowel sounds RUE with mild edema Musculoskeletal: pulses present Neurological: normal sensation, moves all 4 limbs Psychiatric: A&O x 3 Skin: normal turgor, cap refill <2 seconds Dx/Plan (1) Deep vein thrombosis (DVT) of right upper extremity Code(s): I82.621 - ACUTE EMBOLISM AND THROMBOSIS OF DEEP VEINS OF R UP EXTREM Status: Chronic Comment: non-occlusive DVT in R IJ on chronic Eliquis therapy , continue Eliquis 5mg BID, increase ASA 325mg daily (2) Deep vein thrombosis (DVT) of right lower extremity Code(s): I82.401 - ACUTE EMBOLISM AND THOMBOS UNSP DEEP VEINS OF R LOW EXTREM Status: Chronic Qualifiers: Affected thrombotic vein of extremity: femoral Comment: Chronic, non-occlusive DVT in R common femoral/popliteal veins, continue Eliquis/ASA (3) Major depressive disorder Code(s): F32.9 - MAJOR DEPRESSIVE DISORDER, SINGLE EPISODE, UNSPECIFIED Status : Chronic Qualifiers: Major depression episode severity: moderate Comment: Continue Cymbalta/Paxil (4) Seizure Code(s): R56.9 - UNSPECIFIED CONVULSIONS Status: Chronic Comment: Continue Keppra 500mg BID (5) Chronic narcotic dependence Code(s): F11.20 - OPIOID DEPENDENCE, UNCOMPLICATED Status: Chronic Comment: Continue MS Contin 60mg BID (6) Physical deconditioning Code(s): R53.81 - OTHER MALAISE Status: Chronic Comment: PT for mobilization , SNF/swing bed options pending - Plan PT/OT, out of bed/ambulate, DVT proph w/SCDs Stable currently -: Continue Eliquis 5mg BID -: OOB/ambulate -: CM for swing bed options -: Continue ASA 325mg daily * .
[2018-03-22] MEDS: DULoxetine 60 MG CAP PO SCH (20:42)
[2018-03-22] MEDS: traZODone HCl 150 MG TAB PO SCH (20:43)
[2018-03-22] MEDS: Atorvastatin Calcium 40 MG TAB PO SCH (20:43)
[2018-03-23] MEDS: diphenhydrAMINE 50 MG/ML VIAL IVP SCH ×4 (05:21→23:05)
[2018-03-23] MEDS: levETIRAcetam 500 MG TAB PO SCH ×2 (09:40→20:16)
[2018-03-23] MEDS: Apixaban 5 MG TAB PO SCH ×2 (09:40→20:14)
[2018-03-23] MEDS: pyridOXINE 50 MG (B6) TAB PO SCH ×2 (09:41→20:16)
[2018-03-23] MEDS: Aspirin 325 mg Enteric Coated Tablet PO SCH (09:41)
--- NOTE | 2018-03-23 17:41 | PDOC.PN ---
- Subjective Encounter Start Date: 03/23/18 Encounter Start Time: 11:05 Subjective: f/u for DVT of RU/LE extremities and R-sided weakness. Feels better -: overall and ambulating with PT. - Objective Resuscitation Status - Order Detail: 03/17/18 01:06 Resuscitation Status Routine Resuscitation Status: FULL: Full Resuscitation MAR Reviewed: Yes Vital Signs & Weight: Vital Signs (12 hours) Temp Pulse Resp BP Pulse Ox 03/23/18 16:00 99.1 F 93 16 118/68 97 03/23/18 12:00 98.5 F 95 16 114/76 98 03/23/18 08:00 92 L 03/23/18 07:36 99.1 F 87 16 100/58 L 92 L Weight Weight 217 lb 8 oz I&O: 03/22/18 03/23/18 03/24/18 06:59 06:59 06:59 Intake Total 480 Balance 480 Result Diagrams: 03/17/18 07:49 03/17/18 07:49 Additional Labs: Laboratory Tests 03/16/18 03/16/18 03/17/18 15:45 15:45 07:49 Potassium 3.4 L 3.4 L Triglycerides 68 Cholesterol 90 LDL Cholesterol, Calc 43 HDL Cholesterol 33 Prolactin 14.11 EKG Reviewed by me: Yes (Tele - SR) Phys Exam - Physical Examination Constitutional: NAD HEENT: PERRLA, sclera anicteric, oral pharynx no lesions Neck: no nodes, no JVD, supple, full ROM Respiratory: no wheezing, no rales, no rhonchi, clear to auscultation bilateral S1, S2 Cardiovascular: RRR, no significant murmur, no rub, gallop Gastrointestinal: soft, non-tender, no distention, positive bowel sounds RUE with mild edema Musculoskeletal: pulses present Neurological: normal sensation, moves all 4 limbs Skin: normal turgor, cap refill <2 seconds Dx/Plan (1) Deep vein thrombosis (DVT) of right upper extremity Code(s): I82.621 - ACUTE EMBOLISM AND THROMBOSIS OF DEEP VEINS OF R UP EXTREM Status: Chronic Comment: non-occlusive DVT in R IJ on chronic Eliquis therapy , continue Eliquis 5mg BID, increase ASA 325mg daily (2) Deep vein thrombosis (DVT) of right lower extremity Code(s): I82.401 - ACUTE EMBOLISM AND THOMBOS UNSP DEEP VEINS OF R LOW EXTREM Status: Chronic Qualifiers: Affected thrombotic vein of extremity: femoral Comment: Chronic, non-occlusive DVT in R common femoral/popliteal veins, continue Eliquis/ASA (3) Major depressive disorder Code(s): F32.9 - MAJOR DEPRESSIVE DISORDER, SINGLE EPISODE, UNSPECIFIED Status : Chronic Qualifiers: Major depression episode severity: moderate Comment: Continue Cymbalta/Paxil (4) Seizure Code(s): R56.9 - UNSPECIFIED CONVULSIONS Status: Chronic Comment: Continue Keppra 500mg BID (5) Chronic narcotic dependence Code(s): F11.20 - OPIOID DEPENDENCE, UNCOMPLICATED Status: Chronic Comment: Continue MS Contin 60mg BID (6) Physical deconditioning Code(s): R53.81 - OTHER MALAISE Status: Chronic Comment: PT for mobilization , SNF/swing bed options pending - Plan PT/OT, high school social studies teacher, out of bed/ambulate, DVT proph w/SCDs Stable currently -: OOB/ambulate with PT -: Continue Eliquis 5mg BID -: Continue ASA -: Continue Lipitor * Awaiting approval for swing bed
[2018-03-23] MEDS: traZODone HCl 150 MG TAB PO SCH (20:14)
[2018-03-23] MEDS: DULoxetine 60 MG CAP PO SCH (20:15)
[2018-03-23] MEDS: PARoxetine 20 MG TAB PO SCH (20:15)
[2018-03-23] MEDS: Atorvastatin Calcium 40 MG TAB PO SCH (20:17)
[2018-03-23] MEDS: Morphine ER 30 MG TAB PO PRN (23:04)
[2018-03-24] MEDS: diphenhydrAMINE 50 MG/ML VIAL IVP SCH ×4 (04:19→21:36)
[2018-03-24] MEDS: Apixaban 5 MG TAB PO SCH ×2 (08:17→21:34)
[2018-03-24] MEDS: Aspirin 325 mg Enteric Coated Tablet PO SCH (08:17)
[2018-03-24] MEDS: Promethazine 25 MG TAB PO PRN (08:17)
[2018-03-24] MEDS: pyridOXINE 50 MG (B6) TAB PO SCH ×2 (08:17→21:34)
[2018-03-24] MEDS: levETIRAcetam 500 MG TAB PO SCH ×2 (08:17→21:35)
[2018-03-24] MEDS ORDERED: Morphine ER 30 MG TAB PO PRN (14:34)
--- NOTE | 2018-03-24 15:47 | PDOC.PN ---
- Subjective Encounter Start Date: 03/24/18 Encounter Start Time: 15:40 Subjective: f/u for RU/LE DVT on current Eliquis. Some swelling in RLE but still -: ambulating in halls. Less swelling in RUE. No SOB or CP. - Objective Resuscitation Status - Order Detail: 03/17/18 01:06 Resuscitation Status Routine Resuscitation Status: FULL: Full Resuscitation MAR Reviewed: Yes Vital Signs & Weight: Vital Signs (12 hours) Temp Pulse Resp BP Pulse Ox 03/24/18 11:08 98.8 F 92 20 137/65 94 L 03/24/18 08:09 94 L 03/24/18 07:45 98.6 F 85 20 110/59 L 94 L 03/24/18 04:12 100.0 F H 92 16 100/58 L 95 Weight Admit Weight 217 lb 8 oz Weight 217 lb 8 oz I&O: 03/23/18 03/24/18 03/25/18 06:59 06:59 06:59 Intake Total 1210 Balance 1210 Result Diagrams: 03/17/18 07:49 03/17/18 07:49 Additional Labs: Laboratory Tests 03/16/18 03/16/18 03/17/18 15:45 15:45 07:49 Potassium 3.4 L 3.4 L Triglycerides 68 Cholesterol 90 LDL Cholesterol, Calc 43 HDL Cholesterol 33 Prolactin 14.11 EKG Reviewed by me: Yes (Tele - SR) Phys Exam - Physical Examination Constitutional: NAD HEENT: PERRLA, sclera anicteric, oral pharynx no lesions Neck: no nodes, no JVD, supple, full ROM Respiratory: no wheezing, no rales, no rhonchi, clear to auscultation bilateral S1, S2 Cardiovascular: RRR, no significant murmur, no rub, gallop Gastrointestinal: soft, non-tender, no distention, positive bowel sounds RU/LE edema Musculoskeletal: pulses present, edema present Neurological: normal sensation, moves all 4 limbs Psychiatric: A&O x 3 Skin: normal turgor, cap refill <2 seconds Dx/Plan (1) Deep vein thrombosis (DVT) of right upper extremity Code(s): I82.621 - ACUTE EMBOLISM AND THROMBOSIS OF DEEP VEINS OF R UP EXTREM Status: Chronic Comment: non-occlusive DVT in R IJ on chronic Eliquis therapy , continue Eliquis 5mg BID, increase ASA 325mg daily, elevate RLE while seated (2) Deep vein thrombosis (DVT) of right lower extremity Code(s): I82.401 - ACUTE EMBOLISM AND THOMBOS UNSP DEEP VEINS OF R LOW EXTREM Status: Chronic Qualifiers: Affected thrombotic vein of extremity: femoral Comment: Chronic, non-occlusive DVT in R common femoral/popliteal veins, continue Eliquis/ASA (3) Major depressive disorder Code(s): F32.9 - MAJOR DEPRESSIVE DISORDER, SINGLE EPISODE, UNSPECIFIED Status : Chronic Qualifiers: Major depression episode severity: moderate Comment: Continue Cymbalta/Paxil (4) Seizure Code(s): R56.9 - UNSPECIFIED CONVULSIONS Status: Chronic Comment: Continue Keppra 500mg BID (5) Chronic narcotic dependence Code(s): F11.20 - OPIOID DEPENDENCE, UNCOMPLICATED Status: Chronic Comment: Continue MS Contin 60mg BID (6) Physical deconditioning Code(s): R53.81 - OTHER MALAISE Status: Chronic Comment: PT for mobilization , SNF/swing bed options pending - Plan PT/OT, secondary social studies teacher, out of bed/ambulate Stable overall -: Continue Eliquis 5mg po BID -: Elevated RLE while seated -: Continue ASA 325mg daily -: Likely transition to swing bed in next 24h * .
[2018-03-24] MEDS: Atorvastatin Calcium 40 MG TAB PO SCH (21:33)
[2018-03-24] MEDS: DULoxetine 60 MG CAP PO SCH (21:34)
[2018-03-24] MEDS: PARoxetine 20 MG TAB PO SCH (21:34)
[2018-03-24] MEDS: traZODone HCl 150 MG TAB PO SCH (21:35)
[2018-03-25] MEDS: diphenhydrAMINE 50 MG/ML VIAL IVP SCH ×2 (05:02→11:35)
[2018-03-25] MEDS: Apixaban 5 MG TAB PO SCH (08:19)
[2018-03-25] MEDS: Aspirin 325 mg Enteric Coated Tablet PO SCH (08:19)
[2018-03-25] MEDS: pyridOXINE 50 MG (B6) TAB PO SCH (08:19)
[2018-03-25] MEDS: levETIRAcetam 500 MG TAB PO SCH (08:20)
[2018-03-25 12:43] VITALS: BP 126/59; TEMP 98
--- NOTE | 2018-03-25 14:49 | DIS ---
DATE OF ADMISSION: 03/16/2018 DATE OF DISCHARGE: 03/25/2018 DISCHARGE DIAGNOSES: 1. Right upper extremity deep venous thrombosis, nonocclusive involving the right internal jugular vein, on chronic Eliquis therapy. 2. Deep venous thrombosis of the right lower extremity involving the right common femoral and popliteal veins, on chronic Eliquis therapy. 3. Major depressive disorder. 4. Seizures. 5. Chronic narcotic dependence. 6. Physical deconditioning. CONSULTATIONS: Dr. Dennis with Neurology Service. PERTINENT LAB AND X-RAY FINDINGS: Potassium 3.4. Total cholesterol 90, triglycerides 68, HDL 33, and LDL 43. Prolactin level 14.11. CBC showed a hemoglobin of 12, hematocrit 38, and platelet count 226. CT of the brain without contrast dated 03/16/2018, showed no acute intracranial process. CT angiogram of the head and neck dated 03/16/2018, showed no focal stenosis. MRI of the brain dated 03/17/2018, showed a limited exam due to artifactual motion without evidence of acute infarct. Right upper extremity venous Doppler study dated 03/17/2018 showed nonocclusive thrombus in the right internal jugular vein. Right lower extremity venous Doppler study dated 03/17/2018, showed deep venous thrombosis, nonocclusive in the common femoral to popliteal vein. 2D transthoracic echocardiogram dated 03/17/2018, showed ejection fraction of 60% to 65%. Grade 1 of 3 diastolic dysfunction. HOSPITAL COURSE: The patient was initially admitted after presenting with dysarthria and right arm weakness. The patient underwent extensive neuroimaging as well as evaluation by the Neurology Service without evidence of an acute CVA identified. The patient was noted with swelling of the right upper and lower extremity with a known history of prior DVT, undergoing ultrasound evaluation confirming right upper and lower extremity deep venous thrombosis, which were nonocclusive. The patient was continued on her chronic Eliquis therapy. In addition, was given aspirin 325 mg daily. The patient was also noted with deconditioning and difficulty ambulating. Evaluated by the Physical Therapy Service. The patient was evaluated for possible swing bed transfer, however, it was denied by her insurance carrier. The patient remained clinically stable through the hospital course, ambulating up to 800 feet without difficulty. I have examined the patient at the time of discharge and discussed followup instructions. The patient verbalized understanding and in agreement. The patient was ready for discharge on 03/25/2018. DISCHARGE MEDICATIONS: 1. Eliquis 5 mg p.o. b.i.d. 2. Vitamin D3 of 2000 units p.o. t.i.d. 3. Cymbalta 120 mg p.o. at bedtime. 4. Lasix 40 mg p.o. daily. 5. Keppra 500 mg p.o. b.i.d. 6. Morphine extended release 60 mg p.o. b.i.d. 7. Nitroglycerin 0.4 mg sublingually as needed for chest pain. 8. Paxil 40 mg p.o. at bedtime. 9. Vitamin B6 200 mg p.o. b.i.d. 10. Trazodone 300 mg p.o. at bedtime. 11. Enteric-coated aspirin 325 mg p.o. daily. FOLLOWUP: The patient may follow up with Dr. Srinivasan Dennis with Neurology Service and to call his office for appointment, time, and date. CONDITION ON DISCHARGE: Fair. ACTIVITY: Ad-camilo. SPECIAL INSTRUCTIONS: The patient will be set up for outpatient physical therapy in the [facility]. DIET: Heart-healthy. CODE STATUS: Full. DISPOSITION: Home on 03/25/2018. TIME SPENT Total time preparing and coordinating discharge, 33 minutes. Job ID: [id number]
== END 2018-03-25 14:55 | disposition home or self-care (01) ==
LOC: ERS 14:18 → 2SE 17:37 → INTOOBSV 17:37
PROVIDERS: ADMIT Internal Medicine; ATTEND Internal Medicine
DX: I82.C11 Acute embolism and thrombosis of right internal jugular vein (principal); I82.411 Acute embolism and thrombosis of right femoral vein; I82.431 Acute embolism and thrombosis of right popliteal vein; D68.9 Coagulation defect, unspecified; R20.2 Paresthesia of skin; E87.6 Hypokalemia; K59.09 Other constipation; R47.1 Dysarthria and anarthria; F32.9 Major depressive disorder, single episode, unspecified; R56.9 Unspecified convulsions; F11.20 Opioid dependence, uncomplicated; Z86.73 Personal history of transient ischemic attack (TIA), and cerebral infarction without residual deficits; Z79.01 Long term (current) use of anticoagulants; Z79.899 Other long term (current) drug therapy; Z88.2 Allergy status to sulfonamides; Z88.5 Allergy status to narcotic agent; Z88.8 Allergy status to other drugs, medicaments and biological substances; Z91.018 Allergy to other foods; Z95.820 Peripheral vascular angioplasty status with implants and grafts
CPT/HCPCS: 70450; 70496; 70498; 70551; 80048; 80053; 80061; 82962; 84146; 84484; 85025 ×2; 93005; 93306; 93971; 96374; 96375; 96376 ×8; 97116 ×6; 97139 ×4; 97530 ×2; 99285; G0378 ×2; G8978; G8979; G8987; G8988; 36415; 36416; 90471; 90686; 90732; G0008; G0009; J1200; J1642; J2270; J2550

== ENCOUNTER 2018-05-31 16:53 | Emergency (ER) | payer MEDICARE, OTHER ==
[2018-05-31 18:05] LABS: #Eosinphils 0.3 thou/uL (0.0-0.7); #Lymphocytes 1.8 thou/uL (1.20-3.40); #Monocytes 0.4 thou/uL (0.11-0.59); #Neutrophils 3.1 thou/uL (1.40-6.50); %Basophils 0.3 % (0.0-1.0); %Eosinophils 5.3 % (0.0-10.0); %Monocytes 6.9 % (0.0-10.0); %Neutrophils 55.6 % (42.0-75.0); Hemoglobin 10.9 g/dL (12.0-16.0); Mean Corpuscular HGB CONC 31.8 g/dL (32.0-36.0); Mean Corpuscular Hemoglobin 29.7 pg (27.0-31.0); Mean Corpuscular Volume 93.5 fL (78.0-98.0); Mean Platelet Volume 7.4 fL (7.4-10.4); Platelet Count 255 thou/uL (130-400); RBC Distribution Width 12.8 % (11.5-14.5); Red Blood Cell (RBC) Count 3.67 mill/uL (4.20-5.40); White Blood Cell (WBC) Count 5.5 thou/uL (4.8-10.8)
--- NOTE | 2018-05-31 18:20 | RAD ---
FRONTAL VIEW CHEST: 05/31/18 COMPARISON: 03/07/18. INDICATION: Chest pain. FINDINGS: Left chest port is again seen. The cardiac silhouette is stable. No new lobar consolidation, signific ant effusion or discrete pneumothorax. IMPRESSION: Stable chest. POS: DEDRICK
[2018-05-31 18:28] LABS: ALT (SGPT) Less than 7 U/L (8-55); AST (SGOT) 12 U/L (5-34); Albumin 3.7 g/dL (3.5-5.0); Alkaline Phosphatase 119 U/L (40-150); Anion Gap 13 mmol/L (10-20); BUN (Urea Nitrogen) 7 mg/dL (9.8-20.1); Bilirubin, Total 0.3 mg/dL (0.2-1.2); CK (CPK) 122 U/L (29-168); Calc. Creatinine Clearance 0 mL/min (70-130); Calcium 9.3 mg/dL (7.8-10.44); Carbon Dioxide 24 mmol/L (22-29); Chloride 107 mmol/L (98-107); Estimated GFR-MDRD Greater than 90; Globulin 3.4 g/dL (2.4-3.5); Glucose 74 mg/dL (70-105); Potassium 3.8 mmol/L (3.5-5.1); Protein, Total 7.1 g/dL (6.0-8.3); Sodium 140 mmol/L (136-145)
[2018-05-31] MEDS ORDERED: Morphine 4 MG/ML VIAL ONE ×2 (18:33→20:25)
--- NOTE | 2018-05-31 19:08 | ULT ---
DOPPLER VENOUS ULTRASOUND OF THE RIGHT LOWER EXTREMITY: 05/31/18 INDICATION: History of DVT and right lower extremity pain. TECHNIQUE: Alonzo scale, color doppler and vascular duplex with spectral analysis was performed of the deep venous structures of the right lower extremity. Common femoral vein, superficial femoral vein, popliteal ve in, posterior tibial vein, proximal greater saphenous and profunda veins were assessed. COMPARISON: Prior DVT ultrasound of the right lower extremity dated 03/17/18. FINDINGS: Again seen is partial compression and diminished flow from the right common femoral vein through the right profunda femoral vein and through the right superficial femoral vein. There is improved kaleb gallito and flow at the level of the right popliteal vein. There is normal compression and flow at the l evel of the posterior tibial vein. IMPRESSION: Findings of chronic DVT from the right common femoral vein through the level of the distal right supe rficial femoral vein. There is resolution of the DVT seen at the level of the right popliteal vein. POS: NATALIE
[2018-05-31] MEDS ORDERED: Promethazine HCl 25 MG/ML VIAL ONE (20:25)
--- NOTE | 2018-05-31 21:21 | CT ---
CTA OF THE THORAX UTILIZING IV CONTRAST, 3D REFORMATTED IMAGING AND PE PROTOCOL 05/31/18 Comparisons are made with prior CTA of the chest dated 07/23/16. FINDINGS: There is a thread-like filling defect seen within the distal right interlobar pulmonary artery that i s likely present in retrospective review to the comparison CT PE examination on image 33 of series 2. No new focal filling defect is evident to suggest new PE. Heart and great vessels appear within norm al limits. There is a left sided chest wall port in place. No enlarged lymph nodes are evident. The v isualized upper abdomen demonstrates post cholecystectomy change. No focal hepatic lesion is evident. There is some mild post cholecystectomy biliary dilatation. There is mild dilatation of the main foster creatic duct. There is mild scattered degenerative and osteoarthritic change. IMPRESSION: 1. 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 This was likely present in retrospective review of a comparison examination in 2006. No new central or segmental pulmonary em bolus demonstrated. 2. No definite acute cardiopulmonary abnormality demonstrated. 3. Findings were discussed with Dr. Whiting at 9:15 p.m. on 05/31/18. POS: [facility]
--- NOTE | 2018-06-04 13:13 | EKG ---
Test Reason : CP Blood Pressure : / mmHG Vent. Rate : 077 BPM Atrial Rate : 077 BPM P-R Int : 158 ms QRS Dur : 088 ms QT Int : 368 ms P-R-T Axes : 030 039 040 degrees QTc Int : 416 ms Normal sinus rhythm Normal ECG Confirmed by ANIYAH JENSEN DO ([id number]), editor dictionary CLEMENCIA GRAY ([id number]) on 06/04/2018 1:12:53 PM Referred By: ERMD Confirmed By:ANIYAH JENSEN DO
== END 2018-05-31 21:41 | disposition home or self-care (01) ==
LOC: ERS 16:53
DX: I27.82 Chronic pulmonary embolism (principal); I82.402 Acute embolism and thrombosis of unspecified deep veins of left lower extremity; I48.91 Unspecified atrial fibrillation; G40.909 Epilepsy, unspecified, not intractable, without status epilepticus; F32.9 Major depressive disorder, single episode, unspecified; Z79.82 Long term (current) use of aspirin; Z79.899 Other long term (current) drug therapy
CPT/HCPCS: 71045; 71275; 80053; 82550; 84484; 85025; 93005; 96365; 96375; J1642; J2270; J2550; Q9966

== ENCOUNTER 2018-07-04 07:01 | Emergency (ER) | payer MEDICARE, MEDICAID ==
--- NOTE | 2018-07-04 08:48 | CT ---
CT BRAIN NONCONTRAST: HISTORY: A 57-year-old female with seizure. FINDINGS: There is no midline shift or any other mass effect. There is no evidence of acute intracranial hemor rhage, large cortical infarct, obstructive hydrocephalus, or extraaxial fluid collection. The calvar ium is intact. IMPRESSION: No acute intracranial findings. alisia [] POS: [facility]
[2018-07-04 09:01] LABS: #Basophils 0.1 thou/uL (0.0-0.2); #Eosinphils 0.2 thou/uL (0.0-0.7); #Lymphocytes 1.3 thou/uL (1.20-3.40); #Monocytes 0.5 thou/uL (0.11-0.59); #Neutrophils 2.6 thou/uL (1.40-6.50); %Basophils 1.1 % (0.0-1.0); %Eosinophils 3.4 % (0.0-10.0); %Lymphocytes 28.6 % (21.0-51.0); %Monocytes 11.3 % (0.0-10.0); %Neutrophils 55.6 % (42.0-75.0); Hemoglobin 12.6 g/dL (12.0-16.0); Mean Corpuscular HGB CONC 32.4 g/dL (32.0-36.0); Mean Corpuscular Volume 92.4 fL (78.0-98.0); Mean Platelet Volume 7.4 fL (7.4-10.4); Platelet Count 243 thou/uL (130-400); RBC Distribution Width 12.4 % (11.5-14.5); Red Blood Cell (RBC) Count 4.22 mill/uL (4.20-5.40); White Blood Cell (WBC) Count 4.7 thou/uL (4.8-10.8)
[2018-07-04 09:22] LABS: ALT (SGPT) 10 U/L (8-55); AST (SGOT) 17 U/L (5-34); Albumin 3.8 g/dL (3.5-5.0); Alkaline Phosphatase 116 U/L (40-150); Anion Gap 13 mmol/L (10-20); BUN (Urea Nitrogen) 9 mg/dL (9.8-20.1); Bilirubin, Total 0.6 mg/dL (0.2-1.2); Calc. Creatinine Clearance 0 mL/min (70-130); Calcium 9.5 mg/dL (7.8-10.44); Carbon Dioxide 22 mmol/L (22-29); Chloride 108 mmol/L (98-107); Estimated GFR-MDRD Greater than 90; Globulin 3.7 g/dL (2.4-3.5); Glucose 93 mg/dL (70-105); Potassium 3.5 mmol/L (3.5-5.1); Protein, Total 7.5 g/dL (6.0-8.3); Sodium 139 mmol/L (136-145)
== END 2018-07-04 11:21 | disposition home or self-care (01) ==
LOC: ERS 07:01
DX: G40.909 Epilepsy, unspecified, not intractable, without status epilepticus (principal); I48.91 Unspecified atrial fibrillation; F32.9 Major depressive disorder, single episode, unspecified; Z79.899 Other long term (current) drug therapy; Z79.82 Long term (current) use of aspirin
CPT/HCPCS: 70450; 80053; 80177; 84484; 85025; J1642